=== PATIENT | male | born 1995 | race Caucasian/White ===

== ENCOUNTER 2019-02-09 07:01 | Emergency (ER) | payer OTHER, SELFPAY ==
[2019-02-09] MEDS ORDERED: Ibuprofen 800 MG TAB ONE (08:32)
== END 2019-02-09 08:36 ==
LOC: ERS 07:01
DX: S30.1XXA Contusion of abdominal wall, initial encounter (principal); S10.93XA Contusion of unspecified part of neck, initial encounter; V89.2XXA Person injured in unspecified motor-vehicle accident, traffic, initial encounter